=== PATIENT | male | born 1980 ===

== ENCOUNTER 2021-08-16 14:55 | Outpatient (CLI) | payer OTHER | END 2021-08-16 14:56 | disposition home or self-care (01) | LOC: CT 14:55 | PROVIDERS: ATTEND Internal Medicine Gastroenterology | DX: K57.32 Diverticulitis of large intestine without perforation or abscess without bleeding (principal); R10.32 Left lower quadrant pain; M47.817 Spondylosis without myelopathy or radiculopathy, lumbosacral region; M43.17 Spondylolisthesis, lumbosacral region; K76.9 Liver disease, unspecified | CPT/HCPCS: 74177 ==